=== PATIENT | female | born 1960 | race Caucasian/White ===

== ENCOUNTER → 2016-09-06 | Outpatient (CLI) | payer OTHER ==
[~2016-09-06] MED LIST: ASPI81TA85 PO; BACT800T5 PO; BISO5TAB5 PO; COUM1TAB17 PO; COUM7.5T PO; CRES40TA PO; CYMB60CA3 PO; DIFL150T PO; LISI20TA PO; MAGN30TA2 PO; METF750T PO; NEXI40CA PO; NITR2OI TOP; NITR4TASL SL; NORCOTAB PO; OMEG100011 PO; VICO5TAB16 PO; [UNRECOGNIZED DRUG - OTHER] PO
--- NOTE | 2016-09-06 15:13 | REPMRS ---
Patient History The patient states she had a clinical breast exam in April 2016.Patient is postmenopausal. Family history of unknown cancer in father at age 35, unknown cancer in sister at age 44, breast cancer in sister at age 56, unknown cancer in mother at age 55, unknown cancer in brother at age 51, unknown cancer in paternal uncle at age 50, and unknown cancer in paternal uncle at age 51. Digital Mammo Screening Bilat: September 06, 2016 - Exam #: [id number] Bilateral CC and MLO view(s) were taken. Technologist: Jamaica Vu, Technologist Prior study comparison: August 16, 2015, bilateral digital mammo screening bilat performed at [facility]. August 10, 2014, bilateral bilat screen digital mammo, performed at [facility] ([facility]). FINDINGS: There are scattered fibroglandular densities. There has been no change in the appearance of the mammogram from the prior studies. There is a mild amount of scattered fibroglandular density which is fairly symmetric. There is no interval development of dominant mass, architectural distortion, or clustered microcalcification suggestive of malignancy. ASSESSMENT: BI-RADS/ACR category 1 mammogram. Negative. Recommendation Routine screening mammogram in 1 year (for women over age 40). This mammogram was interpreted with the aid of an FDA-approved computer-aided dectection system. Electronically Signed By: Balta Jaime MD 09/06/16 [id number]
--- NOTE | 2016-09-07 04:18 | REP ---
Clinical: Follow-up ovarian cyst . Technique: Transabdominal pelvic ultrasound followed by transvaginal examination for better evaluation of the endometrium and adnexa with color Doppler evaluation of the ovaries. Findings: Bladder is unremarkable and measures 7.9 x 7.5 x 3.9 cm . Normal retroverted uterus measures 4.9 x 3.4 x 4.1 cm . The endometrial complex measures 3.5 mm thickness. No discrete uterine or endometrial abnormalities are appreciated. Bilateral ovaries are normal in appearance and vascularity without evidence for torsion. Right ovary measures 1.4 x 1.2 x 1.3 cm ; R I = 0.54 . Left ovary measures 1.5 x 0.9 x 1.6 cm ; R I = 0.45 . Small amount of free fluid in the left maame pelvis adjacent to the ovary. No adnexal or ovarian cysts or mass lesion/abnormality noted. Impression: 1. Heterogeneous retroverted postmenopausal uterus without focal abnormality. 2. Normal bilateral ovaries without evidence for cyst. Trace free fluid adjacent to the left ovary is nonspecific and possibly physiologic. Signed by Alex Young MD 09/07/2016 04:09 A
== END | disposition home or self-care (01) ==
LOC: M RAD 13:36
PROVIDERS: ATTEND Physician Assistant
DX: Z12.31 Encounter for screening mammogram for malignant neoplasm of breast (principal); R93.8 Abnormal findings on diagnostic imaging of other specified body structures; Z78.0 Asymptomatic menopausal state; Z80.3 Family history of malignant neoplasm of breast; N85.4 Malposition of uterus
CPT/HCPCS: 76830; 76856; G0202

== ENCOUNTER → 2016-12-31 | Outpatient (CLI) | payer OTHER ==
--- NOTE | 2016-12-31 13:17 | REP ---
Clinical: Given history of COPD. Comparison: 07/13/2016. Findings: There is evidence for partial right lung resection surgical changes at the right hilum and right lung base along with minimal pleuroparenchymal changes in the right lower lung zone. No acute consolidation, obvious nodule or mass lesion is appreciated. No significant COPD or emphysematous changes are identified. Thoracic aorta and heart/pericardium appear stable with atherosclerotic changes again noted and no evidence for aneurysm, cardiomegaly or pericardial effusion. Evaluation for adenopathy is limited by the lack of intravenous contrast enhancement, but few prevascular lymph nodes are identified and stable. Limited upper abdomen demonstrates normal bilateral adrenal glands. Impression: 1. Chronic and postsurgical changes involving the right hemithorax remains stable. 2. No significant COPD or emphysematous changes are appreciated. No acute process identified. Signed by Alex Young MD 12/31/2016 01:08 P
== END ==
LOC: M RAD 12:47
PROVIDERS: ATTEND Internal Medicine Pulmonary Disease
DX: J44.9 Chronic obstructive pulmonary disease, unspecified (principal)

== ENCOUNTER → 2017-01-23 | Outpatient (CLI) | payer OTHER ==
--- NOTE | 2017-01-24 07:38 | REP ---
Clinical: Chronic venous hypertension and lower extremity ulceration. Technique: Severino scale and color Doppler evaluation using linear high frequency transducer. Findings: Ultrasound examination of the right lower extremity deep venous structures from the common femoral vein to the distal femoral vein demonstrates normal compressibility flow and wave patterns in response to respiration and augmentation. Small focus of presumed chronic nonocclusive thrombus in the popliteal vein noted. There is evidence for chronic thrombus throughout the greater saphenous vein and anterior accessory vein. Collateral vessels are identified extending from the greater saphenous and anterior accessory veins extending to the site of ulceration at the mid calf. Severe reflux noted through the lesser saphenous vein. Impression: 1. Chronic nonocclusive thrombus in the popliteal vein. 2. Collateral circulation noted from the greater saphenous and anterior accessory veins to the site of ulceration at the mid calf. 3. Severe reflux noted through the lesser saphenous vein. Signed by Alex Young MD 01/24/2017 07:30 A
== END ==
LOC: M RAD 10:44
PROVIDERS: ATTEND Surgery
DX: I83.891 Varicose veins of right lower extremity with other complications (principal)

== ENCOUNTER 2017-02-16 14:56 | Emergency (ER) | payer OTHER ==
[~2017-02-16] VITALS: Ht 160 cm; Wt 91.2 kg
[2017-02-16] MEDS ORDERED: DRIS50002 PO (15:20)
[2017-02-16] MEDS ORDERED: BREO1INH3 PO (15:20)
[2017-02-16] MEDS ORDERED: COUM1TAB17 PO (15:20)
[2017-02-16] MEDS ORDERED: NITR0.4S14 SL (15:20)
[2017-02-16] MEDS ORDERED: LORazepam 0.5 MG TAB PO STA (18:08)
[2017-02-16] MEDS ORDERED: CLINDAMYCIN 150 MG CAP PO ONE (18:15)
[2017-02-16] MEDS: PERCOCET 5MG/325MG TAB PO ONE ×2 (18:15→18:18)
[2017-02-16] MEDS ORDERED: LORazepam 1 MG TAB As Ordered ONE (18:15)
[2017-02-16] MEDS ORDERED: CLIN150C14 PO (18:53)
[2017-02-16] MEDS ORDERED: NORCO, ANEXSIA 5/325MG TABLET (HYDROcodone/ACETAMINOPHEN) PO ONE (19:18)
[2017-02-16 19:20] VITALS: BP 148/72
[2017-02-27] MEDS ORDERED: GLIP10TA6 PO (15:19)
[2017-03-04] MEDS ORDERED: PRED10TA2 (10:59)
== END 2017-02-16 19:33 | disposition home or self-care (01) ==
LOC: M ED 14:56
DX: I80.3 Phlebitis and thrombophlebitis of lower extremities, unspecified (principal); I87.2 Venous insufficiency (chronic) (peripheral); I25.2 Old myocardial infarction; F17.200 Nicotine dependence, unspecified, uncomplicated; Z85.118 Personal history of other malignant neoplasm of bronchus and lung; Z90.2 Acquired absence of lung [part of]; Z95.5 Presence of coronary angioplasty implant and graft; Z79.01 Long term (current) use of anticoagulants

== ENCOUNTER → 2017-03-04 | Day surgery (SDC) | payer OTHER ==
[~2017-03-04] VITALS: Ht 162.6 cm; Wt 90.7 kg
[~2017-03-04] MED LIST changes: +BREO1INH3 PO; +CLIN150C14 PO; +D5W/0.45% SODIUM CHLORIDE 1,000 ML IV SCH; +DRIS50002 PO; +GLIP10TA6 PO; +LIDOCAINE 1% SDV 5 ML VIAL SQ ONE; +LIDOCAINE 1% SDV INJ 30 ML VIAL As Ordered ONE; +LIDOCAINE W/EPINEPHRINE 1% 20ML VIAL As Ordered ONE; +LR 1,000 ML IV ONE; +MIDAZOLAM INJ 5 MG/ML VIAL (J2250) As Ordered ONE; +NITR0.4S14 SL; +PRED10TA2; +fentaNYL 100 MCG/2 ML INJECTION (J3010) As Ordered ONE
[2017-03-04 10:22] LABS: INR 1.56
[2017-03-04 14:30] VITALS: BP 144/70
--- NOTE | 2017-03-19 19:36 | ROOPDOC ---
[facility] Report Of Operation Report of Operation DATE OF PROCEDURE: 03/04/17 PREOPERATIVE DIAGNOSES: Right lower extremity nonhealing venous stasis ulcer. Right lesser saphenous vein valvular insufficiency. POSTOPERATIVE DIAGNOSES: Right lower extremity nonhealing venous stasis ulcer. Right lesser saphenous vein valvular insufficiency.. PROCEDURE: Right lesser saphenous vein radiofrequency ablation. SURGEON: Dr. My Mcelroy MD CUPOLA MAN: None INDICATION: Patient is a 56-year-old female with nonhealing right medial calf venous stasis ulcer who has previously undergone a right greater saphenous vein radiofrequency ablation. Patient was evaluated and found to have right lesser saphenous vein and valvular insufficiency and continues to have nonhealing of the right lower extremity venous stasis wound. Patient was evaluated in recommendation was to undergo right lesser saphenous vein radiofrequency ablation for improved chance at healing the right lower extremity venous stasis ulcer. Risks benefits and alternative treatment options were discussed with the patient. Benefits included but were not limited to relief of symptoms from venous insufficiency and healing of venous stasis ulcer. Alternative treatment options included but were not limited to no intervention with continued conservative management. Risks included but were not limited to infection, bleeding, renal failure requiring hemodialysis, possible need for further surgical intervention, scarring of the skin, burning of the skin, cerebrovascular accident, myocardial infarction, pulmonary embolus, DVT, loss of limb, loss of life and poor outcome. All the patient's questions were answered. Patient accepts these risks and agrees to proceed with right lesser saphenous vein ablation. ANESTHESIA: Local monitored anesthesia care. ESTIMATED BLOOD LOSS: Approximately 5 mL. IV FLUIDS: 700 HEPARIN: None PROTAMINE: None COMPLICATIONS: None. DRAINS: None SPECIMENS: None IMPLANTS: None PROCEDURE: Patient was taken to the operating room placed supine on the operating room table and the right lower extremity was prepped and draped in a standard surgical fashion. A timeout was completed by myself and all the staff in the operating room confirming the correct patient, procedure and laterality. The right lesser saphenous vein was then cannulated with a micro-puncture needle to anesthetize the overlying skin with 1% lidocaine mixed with half percent Marcaine using ultrasound guidance. The ultrasound showed the right lesser saphenous vein to be widely patent and easily compressible and free of thrombus. The ultrasound guided cannulation was performed using concurrent real- time ultrasound visualization of the needle entry into the right lesser saphenous vein with permanent recording of the image performed. The micropuncture wires advanced to the micropuncture needle which was then upsized to a micropuncture sheath. A J-wire was advanced to the micropuncture sheath which was then upsized to a 7 Martiniquais sheath. The radiofrequency ablation catheter was advanced through the 7 Martiniquais sheath into the right lesser saphenous vein and placed 2 cm distal to the right lesser saphenous vein and right popliteal vein junction. The right lesser saphenous vein was then anesthetized and insulated with circumferential injection of tumescent solution around the right lesser saphenous vein. The right lesser saphenous vein was then ablated using the radiofrequency ablation catheter from 2 cm distal to the right lesser saphenous vein and right popliteal vein junction to the entry site into the right lesser saphenous vein at the ankle. The catheter and sheath were then removed. The right lower extremity was then wrapped with an Junior wrap from the base of the toes to the thigh region after dressings were applied. All instrument, sponge and needle counts were correct at the end of the case. There were no complications. Dr. Mcelroy was present for and directed the entire case. The patient was transferred to the recovery room awake, alert, extubated and in stable condition. Rowdy Mcelroy MD Mar 19, 2017 19:36
== END | disposition home or self-care (01) ==
LOC: M SDC 09:52
PROVIDERS: ATTEND Surgery Vascular Surgery
DX: I83.218 Varicose veins of right lower extremity with both ulcer of other part of lower extremity and inflammation (principal); L97.819 Non-pressure chronic ulcer of other part of right lower leg with unspecified severity; I82.5Z1 Chronic embolism and thrombosis of unspecified deep veins of right distal lower extremity; I25.2 Old myocardial infarction; Z95.5 Presence of coronary angioplasty implant and graft; K21.9 Gastro-esophageal reflux disease without esophagitis; M19.90 Unspecified osteoarthritis, unspecified site; M54.9 Dorsalgia, unspecified; J44.9 Chronic obstructive pulmonary disease, unspecified; F41.9 Anxiety disorder, unspecified; G47.00 Insomnia, unspecified; F32.89 Other specified depressive episodes; E11.9 Type 2 diabetes mellitus without complications; I10 Essential (primary) hypertension; E78.00 Pure hypercholesterolemia, unspecified; Z85.118 Personal history of other malignant neoplasm of bronchus and lung; F17.210 Nicotine dependence, cigarettes, uncomplicated; Z79.899 Other long term (current) drug therapy; Z79.52 Long term (current) use of systemic steroids; Z79.82 Long term (current) use of aspirin; Z79.01 Long term (current) use of anticoagulants; Z88.1 Allergy status to other antibiotic agents
CPT/HCPCS: 36415; 36475; 85610; J2250; J3010

== ENCOUNTER → 2017-03-13 | Outpatient (CLI) | payer OTHER ==
[~2017-03-13] MED LIST changes: -D5W/0.45% SODIUM CHLORIDE 1,000 ML IV SCH; -LIDOCAINE 1% SDV 5 ML VIAL SQ ONE; -LIDOCAINE 1% SDV INJ 30 ML VIAL As Ordered ONE; -LIDOCAINE W/EPINEPHRINE 1% 20ML VIAL As Ordered ONE; -LR 1,000 ML IV ONE; -MIDAZOLAM INJ 5 MG/ML VIAL (J2250) As Ordered ONE; -fentaNYL 100 MCG/2 ML INJECTION (J3010) As Ordered ONE
--- NOTE | 2017-03-13 12:24 | REP ---
REASON: History of venous insufficiency. Status post surgical procedure. Multiple ultrasonographic images of the deep venous structures of the right thigh were obtained from the level of the common femoral vein to the popliteal vein along with Doppler interrogative techniques, compressive techniques, and color flow imaging. There is abnormal echogenic material seen in the popliteal vein which extends to the trifurcation. Augmentation is decreased. Color flow signal is decreased. IMPRESSION: Acute deep vein thrombosis as described above. Signed by Jayy Mireles DO 03/13/2017 04:57 P
== END ==
LOC: M RAD 10:57
PROVIDERS: ATTEND Surgery Vascular Surgery
DX: I82.431 Acute embolism and thrombosis of right popliteal vein (principal); I87.2 Venous insufficiency (chronic) (peripheral)

== ENCOUNTER → 2017-05-03 | Outpatient (REF) | payer OTHER | LOC: M LAB REF 12:43 | PROVIDERS: ATTEND Nurse Practitioner Family | DX: N39.0 Urinary tract infection, site not specified (principal) ==

== ENCOUNTER → 2017-09-30 | Outpatient (CLI) | payer OTHER | LOC: M RAD 10:09 | DX: Z12.31 Encounter for screening mammogram for malignant neoplasm of breast (principal); Z80.3 Family history of malignant neoplasm of breast; Z80.9 Family history of malignant neoplasm, unspecified | CPT/HCPCS: 77067 ==

== ENCOUNTER → 2017-10-29 | Outpatient (REF) | payer OTHER ==
[2017-10-29 19:04] LABS: C REACTIVE PROTEIN QUANTITATIV 1.49 MG/DL (0.00-0.30)
== END ==
LOC: M LAB REF 17:40
DX: M25.50 Pain in unspecified joint (principal)
CPT/HCPCS: 86140

== ENCOUNTER → 2017-12-16 | Outpatient (CLI) | payer OTHER ==
[~2017-12-16] MED LIST changes: -ASPI81TA85 PO; -BACT800T5 PO; -BISO5TAB5 PO; -BREO1INH3 PO; -CLIN150C14 PO; -COUM1TAB17 PO; -COUM7.5T PO; -CRES40TA PO; -CYMB60CA3 PO; -DIFL150T PO; -DRIS50002 PO; -GLIP10TA6 PO; +ISOVUE-370 76% 100ML VIAL (Q9967) As Ordered; -LISI20TA PO; -MAGN30TA2 PO; -METF750T PO; -NEXI40CA PO; -NITR0.4S14 SL; -NITR2OI TOP; -NITR4TASL SL; -NORCOTAB PO; -OMEG100011 PO; -PRED10TA2; -VICO5TAB16 PO; -[UNRECOGNIZED DRUG - OTHER] PO
== END ==
LOC: M RAD 09:46
DX: C34.90 Malignant neoplasm of unspecified part of unspecified bronchus or lung (principal); E87.1 Hypo-osmolality and hyponatremia
CPT/HCPCS: Q9967

== ENCOUNTER → 2017-12-16 | Outpatient (CLI) | payer OTHER ==
[2017-12-16 10:28] LABS: ANION GAP 5 MEQ/L (8-16); BLOOD UREA NITROGEN 10 MG/DL (7-18); CALCIUM LEVEL 8.3 MG/DL (8.5-10.1); CARBON DIOXIDE LEVEL 27 MEQ/L (21-32); CHLORIDE LEVEL 105 MEQ/L (98-107); CREATININE FOR GFR 0.69 MG/DL (0.55-1.30); GLOMERULAR FILTRATION RATE > 60.0 (>51); GLUCOSE, FASTING 136 MG/DL (70-100); POTASSIUM SERUM 4.4 MEQ/L (3.5-5.1); SODIUM LEVEL 137 MEQ/L (136-145)
== END ==
LOC: M LAB 09:38
DX: E87.1 Hypo-osmolality and hyponatremia (principal)

== ENCOUNTER → 2018-04-30 | Outpatient (CLI) | payer OTHER | LOC: M RAD 10:39 | DX: I83.218 Varicose veins of right lower extremity with both ulcer of other part of lower extremity and inflammation (principal); I74.9 Embolism and thrombosis of unspecified artery; F17.218 Nicotine dependence, cigarettes, with other nicotine-induced disorders | CPT/HCPCS: 93971 ==

== ENCOUNTER → 2018-08-01 | Outpatient (CLI) | payer OTHER ==
[~2018-08-01] MED LIST changes: +ASPI81TA85 PO; +BACT800T5 PO; +BISO5TAB5 PO; +BREO1INH3 PO; +CLIN150C14 PO; +COUM1TAB17 PO; +COUM7.5T PO; +CRES40TA PO; +CYMB60CA3 PO; +DIFL150T PO; +DRIS50003 PO; +GLIP10TA6 PO; -ISOVUE-370 76% 100ML VIAL (Q9967) As Ordered; +LISI20TA PO; +MAGN30TA2 PO; +METF750T PO; +NEXI40CA PO; +NITR0.4S14 SL; +NITR2OI TOP; +NITR4TASL SL; +NORCOTAB PO; +OMEG100011 PO; +PRED10TA2; +VICO5TAB16 PO; +[UNRECOGNIZED DRUG - OTHER] PO
--- NOTE | 2018-08-01 14:27 | REP ---
RIGHT KNEE, FIVE VIEWS: HISTORY: Swelling. There is no acute fracture or dislocation. There is mild narrowing of the medial knee joint space. The lateral knee joint space and patellofemoral joint space are normal in appearance. Osteophytes are present on the femur, tibia, and patella. IMPRESSION: Degenerative change as described above. Electronically Signed by Ming Lara MD 08/01/2018 02:29 P
--- NOTE | 2018-08-01 15:23 | REP ---
RIGHT LOWER EXTREMITY DUPLEX VENOUS ULTRASOUND: HISTORY: Question DVT. Patient on Coumadin. FINDINGS: There is echogenic material along the wall of the proximal femoral vein and common femoral vein segment on the right with lack of complete compressibility consistent with nonocclusive chronic DVT. This appears a little less extensive than on the prior study. No evidence of acute DVT is seen. IMPRESSION: Findings consistent with chronic nonocclusive DVT in the right common femoral and proximal femoral vein. No definite acute DVT. Electronically Signed by Eb Jaime MD 08/01/2018 05:01 P
== END ==
LOC: M RAD 13:48
PROVIDERS: ATTEND Nurse Practitioner Family
DX: M17.11 Unilateral primary osteoarthritis, right knee (principal); M25.761 Osteophyte, right knee; M25.461 Effusion, right knee; M25.561 Pain in right knee; M79.89 Other specified soft tissue disorders

== ENCOUNTER → 2018-10-08 | Outpatient (CLI) | payer MEDICARE ==
[~2018-10-08] MED LIST changes: +FURO20TA2 PO; +GABA-1171 PO; +ISOVUE-370 76% 100ML VIAL (Q9967) As Ordered ONE; +MAGN64TASA PO; +PANT40TA3 PO; +POTA10CA32 PO
--- NOTE | 2018-10-08 10:28 | REPMRS ---
Patient History The patient states she had a clinical breast exam in September 2018. Family history of unknown cancer at age 55 in mother, unknown cancer at age 50 in paternal uncle, unknown cancer at age 51 in paternal uncle, breast cancer at age 56 in sister, unknown cancer at age 51 in brother, unknown cancer at age 44 in sister, unknown cancer at age 35 in father. Digital Mammo Screening Bilat: October 08, 2018 - Exam #: [id number] Bilateral CC and MLO view(s) were taken. Technologist: Jamaica Vu, Technologist Prior study comparison: September 30, 2017, bilateral digital mammo screening bilat performed at [facility]. September 06, 2016, bilateral digital mammo screening bilat performed at [facility]. August 16, 2015, bilateral digital mammo screening bilat performed at [facility]. FINDINGS: There are scattered fibroglandular densities. There has been no change in the appearance of the mammogram from the prior studies. There is a mild amount of scattered fibroglandular density which is fairly symmetric. There is no interval development of dominant mass, architectural distortion, or clustered microcalcification suggestive of malignancy. 3-D tomosynthesis shows no additional findings. Assessment: BI-RADS/ACR category 1 mammogram. Negative Mammogram. Recommendation Routine screening mammogram of both breasts in 1 year (for women over age 40). This patient's Lifetime Breast Cancer RIsk is estimated at 13.4 %. This mammogram was interpreted with the aid of an FDA-approved computer-aided dectection system. Electronically Signed By: Balta Jaime MD 10/08/18 [id number]
--- NOTE | 2018-10-08 11:06 | REP ---
Clinical: History of poorly differentiated large cell carcinoma. Technique: Axial contrast enhanced images from the thoracic inlet to the upper abdomen with coronal and sagittal re-formations using 100 ml Isovue 370 intravenous contrast material. Comparison: 12/16/2017. Findings: The bilateral lung maldonado demonstrate chronic interstitial changes and evidence for emphysematous disease along with minimal scattered scarring. Postsurgical changes involving the right hemithorax noted. Mediastinal and hilar adenopathy is again appreciated and appears relatively stable. No acute consolidation, nodule or mass lesion identified. No effusion. No pneumothorax. Tracheobronchial tree is patent. Further evaluation of the mediastinum demonstrates atherosclerotic changes to the thoracic aorta and coronary arteries without aortic aneurysm or dissection. No cardiomegaly or pericardial effusion. Surrounding musculoskeletal structures without focal osseous abnormality. Limited upper abdomen demonstrates fatty infiltration to the liver and normal bilateral adrenal glands. Impression: 1. Stable chronic interstitial changes and right-sided postsurgical changes along with stable mediastinal and hilar adenopathy. 2. No evidence for acute process and no evidence for acute recurrence or metastatic disease. Electronically Signed by Alex Young MD 10/08/2018 10:58 A
== END ==
LOC: M RAD 09:42
PROVIDERS: ATTEND Nurse Practitioner Family
DX: Z12.31 Encounter for screening mammogram for malignant neoplasm of breast (principal)
CPT/HCPCS: 71260; 77063; 77067; Q9967

== ENCOUNTER → 2019-01-12 | Outpatient (CLI) | payer MEDICARE ==
[~2019-01-12] MED LIST changes: +HYDR-3715 PO; -ISOVUE-370 76% 100ML VIAL (Q9967) As Ordered ONE; -NORCOTAB PO; -VICO5TAB16 PO; +VICO5TAB17 PO
--- NOTE | 2019-01-13 06:42 | REP ---
Clinical: Chronic venous hypertension with lower extremity ulcer. Technique: Real time golden scale and color Doppler evaluation using linear high frequency transducer. Findings: Left lower extremity demonstrates no evidence for deep venous thrombosis and incidental duplicated mid femoral vein. Minimal amount of reflux noted through the greater saphenous vein measuring 9 mm diameter proximally with 5.4-second reflux duration as well as reflux through the anterior accessory greater saphenous vein. Reflux also identified through the deep system including common femoral vein, superficial femoral vein and popliteal vein. Right lower extremity demonstrates chronic nonocclusive thrombus extending from the common femoral vein to the popliteal vein (history of prior acute deep venous thrombosis). The patient is noted to be status post EVLT the right lower extremity reflux through the deep system from the common femoral vein to the popliteal vein is noted. Impression: 1. Chronic nonocclusive thrombus in the right lower extremity from the common femoral vein to the popliteal vein. Status post right EVLT with evidence for reflux through the deep system. 2. Left lower extremity without DVT but demonstrating minimal reflux through the greater saphenous vein and anterior accessory vein as well as the deep system. Electronically Signed by Alex Young MD 01/13/2019 06:33 A
== END ==
LOC: M RAD 10:38
PROVIDERS: ATTEND Physician Assistant
DX: I87.311 Chronic venous hypertension (idiopathic) with ulcer of right lower extremity (principal); I82.511 Chronic embolism and thrombosis of right femoral vein; I82.531 Chronic embolism and thrombosis of right popliteal vein

== ENCOUNTER 2019-02-19 10:40 | Day surgery (SDC) | payer MEDICARE ==
[~2019-02-19] VITALS: Ht 162.6 cm; Wt 86.4 kg
[~2019-02-19 10:40] MED LIST changes: +BALANCED SALT IRRIGATION SOLUTION 500ML BAG (FOR OR EYE MACHINE) As Ordered ONE; +CEFUROXIME 1MG/0.1ML INTRACAMERAL INJ As Ordered ONE; +DUOVISC (0.50ML VISCOAT/0.55ML PROVISC) OPHTH KIT As Ordered ONE; +LIDOCAINE 0.75%/EPINEPHRINE 0.025% IN BSS 1ML SYR INTRACAMERAL (OR ONLY) As Ordered ONE; +MIDAZOLAM INJ 2 MG/2 ML VIAL (J2250) As Ordered ONE; +OFLOXACIN 0.3 % (OCUFLOX) OPTH SOL 5ML OD ONE; +PHENYLEPHRINE 2.5% OPHTH SOL 2ML OD ONE; +POVIDONE-IODINE 5% OPHTH PREP SOL 30ML As Ordered ONE; +PROPARACAINE 0.5% OPHTH SOL 15ML OD ONE; +TROPICAMIDE 1% OPHTH SOLN 2ML OD ONE; +fentaNYL 100 MCG/2 ML INJECTION (J3010) As Ordered ONE
[2019-02-19 13:25] VITALS: BP 132/66
--- NOTE | 2019-02-20 20:31 | RO ---
DATE OF PROCEDURE: 02/19/2019 PREOPERATIVE DIAGNOSIS: 1. Visually significant nuclear sclerotic cataract right eye. POSTOPERATIVE DIAGNOSIS: 1. Visually significant nuclear sclerotic cataract right eye. PROCEDURE: 1. Cataract extraction with use of phacoemulsification and placement of intraocular lens, AU00T0, 21.5 D, right eye. SURGEON: Kenn Farias DO POT OPERATOR: None. ANESTHESIA: Local with monitored anesthesia care (MAC). COMPLICATIONS: None. POSTOPERATIVE CONDITION: Stable. INDICATIONS FOR SURGERY: 1. Blurred vision affecting patients activities of daily living. DESCRIPTION OF PROCEDURE: The patient was seen in the preoperative area and properly identified. The correct operative eye was identified and marked. The patient received topical anesthetic, antibiotics, and topical dilating drops. The patient was then transferred to the operating room. The correct side was re-identified, and a time-out was performed. The eye was prepped and draped in a sterile fashion. The eyelids were isolated with Tegaderm tape, and the lids were held open with an adjustable speculum. A 1.0 mm paracentesis incision was made. Intraocular preservative-free Shugarcaine was then injected into the anterior chamber. Viscoelastic was then injected into the anterior chamber through the paracentesis. Using a 2.4 mm sharp-tipped keratome, the anterior chamber was entered via a temporal clear cornea incision. A continuous curvilinear capsulorrhexis was created with Utrata forceps. Hydrodissection was performed with balanced salt solution (BSS) on a blunt cannula until the nucleus was able to rotate freely. The crystalline lens was phacoemulsified and aspirated. Irrigation/aspiration was used to remove the cortical material. Cohesive viscoelastic was placed into the capsular bag to deepen it. The implant was placed into the capsular bag and allowed to unfold. Placement was confirmed by visualizing the anterior capsulorrhexis. Irrigation/aspiration was used to remove the viscoelastic. The clear corneal incision was hydrated with BSS on a blunt cannula. The lens was well positioned. The incisions were then tested for leaks and found to be negative. The eye was then palpated for appropriate pressure and adjusted accordingly with BSS. The eyelid speculum was then carefully removed. A shield was placed over the eye. The patient tolerated the procedure well and was discharged to the recovery unit in a stable condition.
== END 2019-02-19 13:30 | disposition home or self-care (01) ==
LOC: M SDC 10:40
PROVIDERS: ATTEND Ophthalmology
DX: H25.11 Age-related nuclear cataract, right eye (principal); I10 Essential (primary) hypertension; E11.9 Type 2 diabetes mellitus without complications; J44.9 Chronic obstructive pulmonary disease, unspecified; E78.5 Hyperlipidemia, unspecified; K21.9 Gastro-esophageal reflux disease without esophagitis; Z79.82 Long term (current) use of aspirin; Z85.118 Personal history of other malignant neoplasm of bronchus and lung; Z92.21 Personal history of antineoplastic chemotherapy; F17.210 Nicotine dependence, cigarettes, uncomplicated; Z88.1 Allergy status to other antibiotic agents; Z88.5 Allergy status to narcotic agent; Z79.84 Long term (current) use of oral hypoglycemic drugs; Z79.01 Long term (current) use of anticoagulants
CPT/HCPCS: 66984; J2250; J3010; V2632

== ENCOUNTER → 2019-09-16 | Outpatient (CLI) | payer MEDICARE ==
[~2019-09-16] MED LIST changes: -BALANCED SALT IRRIGATION SOLUTION 500ML BAG (FOR OR EYE MACHINE) As Ordered ONE; +BISO5TAB14 PO; -BISO5TAB5 PO; -CEFUROXIME 1MG/0.1ML INTRACAMERAL INJ As Ordered ONE; -DUOVISC (0.50ML VISCOAT/0.55ML PROVISC) OPHTH KIT As Ordered ONE; -LIDOCAINE 0.75%/EPINEPHRINE 0.025% IN BSS 1ML SYR INTRACAMERAL (OR ONLY) As Ordered ONE; -LISI20TA PO; +LISI20TA19 PO; -METF750T PO; +METF750T36 PO; -MIDAZOLAM INJ 2 MG/2 ML VIAL (J2250) As Ordered ONE; -OFLOXACIN 0.3 % (OCUFLOX) OPTH SOL 5ML OD ONE; +OSTE1TAB2 PO; -PHENYLEPHRINE 2.5% OPHTH SOL 2ML OD ONE; -POVIDONE-IODINE 5% OPHTH PREP SOL 30ML As Ordered ONE; -PROPARACAINE 0.5% OPHTH SOL 15ML OD ONE; -TROPICAMIDE 1% OPHTH SOLN 2ML OD ONE; -fentaNYL 100 MCG/2 ML INJECTION (J3010) As Ordered ONE
--- NOTE | 2019-09-17 16:35 | REP ---
Clinical: History of large cell carcinoma to the right upper lobe/right middle lobe. Technique: Axial noncontrast images from the thoracic inlet to the upper abdomen eighth coronal and sagittal re-formations. Comparison: 10/08/2018. Findings: Lung maldonado demonstrate stable fibrosis/scarring, bronchiectasis, and subtle patchy primarily lower lobe ground-glass opacities. No new acute pulmonary parenchymal consolidation, nodule or mass lesion. No effusion. No pneumothorax. Postsurgical changes primarily noted in the right hilum remain essentially stable. Suspected mediastinal and hilar soft tissue/adenopathy appears relatively similar to prior examination although examination is limited by lack of intravenous contrast enhancement. Further evaluation of the mediastinum demonstrates atherosclerotic changes to the thoracic aorta and coronary arteries without aortic aneurysm or cardiomegaly. No pericardial effusion. Surrounding musculoskeletal structures without focal abnormality. Impression: 1. Chronic stable changes as described above. 2. Suspected mediastinal and hilar adenopathy similar to prior examination although evaluation is limited by the lack of intravenous contrast enhancement. 3. No obvious acute process and no obvious evidence for recurrence or metastatic disease. Electronically Signed by Alex Young MD 09/17/2019 04:27 P
== END ==
LOC: M RAD 13:06
PROVIDERS: ATTEND Internal Medicine Pulmonary Disease
DX: Z85.118 Personal history of other malignant neoplasm of bronchus and lung (principal)

== ENCOUNTER → 2019-10-27 | Outpatient (CLI) | payer MEDICARE ==
--- NOTE | 2019-10-27 11:01 | REPMRS ---
Patient History The patient states she had a clinical breast exam in November 2018. Family history of unknown cancer at age 55 in mother, unknown cancer at age 50 in paternal uncle, unknown cancer at age 51 in paternal uncle, breast cancer at age 56 in sister, unknown cancer at age 51 in brother, unknown cancer at age 44 in sister, unknown cancer at age 35 in father. 3D TOMOSYNTHESIS WAS PERFORMED. [facility] lifetime risk for breast cancer is 13.1%. Digital Woman Screen Mammo: October 27, 2019 - Exam #: [id number] Bilateral CC and MLO view(s) were taken. Technologist: Ruthann Martini, Prior study comparison: October 08, 2018, bilateral digital mammo screening bilat, performed at [facility]. September 30, 2017, bilateral digital mammo screening bilat, performed at [facility]. FINDINGS: There are scattered fibroglandular densities. There has been no change in the appearance of the mammogram from the prior studies. There is a mild amount of residual fibroglandular tissue which is fairly symmetric. There is no interval development of dominant mass, architectural distortion, or clustered microcalcification suggestive of malignancy. Assessment: BI-RADS/ACR category 1 mammogram. Negative Mammogram. Recommendation Routine screening mammogram in 1 year (for women over age 40). This mammogram was interpreted with the aid of an FDA-approved computer-aided dectection system. Electronically Signed By: Miguel Ángel Severino MD 10/27/19 1100
== END ==
LOC: M WHC 09:29
PROVIDERS: ATTEND Nurse Practitioner Family
DX: Z12.31 Encounter for screening mammogram for malignant neoplasm of breast (principal)

== ENCOUNTER → 2019-11-24 | Outpatient (REF) | payer MEDICARE | LOC: M LAB REF 17:19 | PROVIDERS: ATTEND Internal Medicine | DX: M25.50 Pain in unspecified joint (principal) ==

== ENCOUNTER → 2020-01-29 | Outpatient (CLI) | payer MEDICARE ==
[~2020-01-29] MED LIST changes: -COUM7.5T PO; +COUM7.5T6 PO
[2020-01-29 13:04] LABS: BLOOD UREA NITROGEN 11 MG/DL (7-18); CARBON DIOXIDE LEVEL 25 MEQ/L (21-32); CHLORIDE LEVEL 102 MEQ/L (98-107); CREATININE FOR GFR 0.76 MG/DL (0.55-1.30); GLOMERULAR FILTRATION RATE > 60.0 (>51); GLUCOSE, FASTING 217 MG/DL (70-100); POTASSIUM SERUM 4.5 MEQ/L (3.5-5.1); SODIUM LEVEL 134 MEQ/L (136-145)
== END ==
LOC: M LAB 11:52
PROVIDERS: ATTEND Internal Medicine
DX: I10 Essential (primary) hypertension (principal)

== ENCOUNTER → 2020-02-10 | Outpatient (CLI) | payer MEDICARE ==
[2020-02-10 14:21] LABS: BASO % 0.4 % (0.0-1.0); EOS # 0.1 10^3/uL (0.0-0.5); EOS % 1.3 % (0.0-3.0); HEMATOCRIT 42.4 % (36.0-47.0); LYMPH # 2.4 10^3/uL (1.5-5.0); LYMPH % 30.8 % (24.0-44.0); MEAN CORPUSCULAR HEMOGLOBIN 27.3 pg (27.0-33.0); MEAN CORPUSCULAR VOLUME 82.7 fl (80.0-96.0); MONO # 0.6 10^3/uL (0.0-0.8); MONO % 7.5 % (0.0-5.0); NEUTROPHILS # 4.7 10^3/uL (1.5-8.5); NEUTROPHILS % 59.9 % (36.0-66.0); PLATELET COUNT, AUTOMATED 377 10^3/uL (150-450); RED BLOOD COUNT 5.13 10^6/uL (4.00-5.40); WHITE BLOOD COUNT 7.8 10^3/uL (4.0-10.0)
[2020-02-10 14:48] LABS: BLOOD UREA NITROGEN 7 MG/DL (7-18); CALCIUM LEVEL 9.3 MG/DL (8.5-10.1); CARBON DIOXIDE LEVEL 25 MEQ/L (21-32); CHLORIDE LEVEL 98 MEQ/L (98-107); CREATININE FOR GFR 0.74 MG/DL (0.55-1.30); GLOMERULAR FILTRATION RATE > 60.0 (>51); GLUCOSE, FASTING 172 MG/DL (70-100); POTASSIUM SERUM 3.8 MEQ/L (3.5-5.1); SODIUM LEVEL 132 MEQ/L (136-145)
== END ==
LOC: M LAB 13:20
PROVIDERS: ATTEND Physician Assistant
DX: I25.118 Atherosclerotic heart disease of native coronary artery with other forms of angina pectoris (principal)

== ENCOUNTER → 2020-05-06 | Outpatient (CLI) | payer MEDICARE ==
[~2020-05-06] MED LIST changes: -ASPI81TA85 PO; +ASPI81TA86 PO; +BISO10TA14 PO; +HYDR-4429 PO; +ISOS30TA4 PO; +ISOVUE-370 76% 100ML VIAL As Ordered ONE; +JARD1TAB PO; +JARD1TAB3 PO; -LISI20TA19 PO; +LISI20TA35 PO; +PANT40TA29 PO; -PANT40TA3 PO; +PLAV1TAB2 PO; +WARF-23 PO
--- NOTE | 2020-05-12 08:27 | REP ---
CT CHEST WITH INTRAVENOUS (IV) CONTRAST HISTORY: Shortness of breath. COMPARISON: Chest CT study 09/16/2019 and 10/08/2018. CT CONTRAST DOSE: 100 mL of intravenous Isovue-[address] FINDINGS: The patient is status post prior right upper lobectomy for carcinoma of the right lung. There are right mediastinal clips and right suprahilar clips. There is elevation of the right hemidiaphragm with slight pleural parenchymal fibrosis in the right base. These findings are uncomfortable. No pleural effusion is seen. There is a granulomatous calcification in the right lower lobe unchanged. No new pulmonary nodule is appreciated. No infiltrate is seen. Vascular calcification is noted along the coronary artery distribution. There is advanced diffuse fatty infiltration of the liver. Normal adrenal glands are seen bilaterally. Stable subcarinal and hilar lymph nodes are observed. No progressive tc enlargement is seen. No bony destructive lesion is seen. IMPRESSION: Postthoracotomy right upper lobectomy for malignancy. Vascular calcification. Stable hilar and mediastinal lymph nodes. No acute disease. Diffuse fatty infiltration of the liver. MTDD
== END ==
LOC: M RAD 13:02
PROVIDERS: ATTEND Internal Medicine
DX: R06.02 Shortness of breath (principal)
CPT/HCPCS: 71260; Q9967

== ENCOUNTER → 2020-06-06 | Outpatient (CLI) | payer MEDICARE ==
[~2020-06-06] MED LIST changes: -ISOVUE-370 76% 100ML VIAL As Ordered ONE
--- NOTE | 2020-06-06 11:42 | REP ---
INDICATION: LUNG CA W/ BONE PAIN, INCREASING ALK PHOS, US FIRST. COMPARISON: Comparison imaging includes the CT abdomen pelvis January 31, 2017, PET-CT January 26, 2016, and MRI lumbar spine September 20, 2015.. TECHNIQUE/RADIOTRACER AND DOSE: 21.5 mCi of technetium 99m MDP was injected and standard whole-body bone scanning is acquired. FINDINGS: There is normal distribution of skeletal tracer with uptake in bilateral kidneys and urinary bladder. There is a mottled pattern of increased uptake in the upper sacrum on posterior images. This appears to be more prominent in the right mid and upper sacrum than the left. Comparison CT imaging raises question of Paget's disease involving the sacrum. Metastasis cannot be excluded. There is no comparison bone scan. There is mild arthritic uptake in each mid foot. No other evidence to suggest skeletal metastatic disease. IMPRESSION: Mottled pattern of increased uptake in the sacrum. Paget's disease versus metastasis. Repeat CT study of the pelvis recommended. No other evidence of skeletal metastatic disease.. <Electronically signed by Balta Jaime > 06/06/20 [id number]
--- NOTE | 2020-06-08 07:44 | REP ---
INDICATION: LUNG CA W/ BONE PAIN, INCREASING ALK PHOS, NUC MED ALSO COMPARISON: None. TECHNIQUE: Real time golden scale ultrasound examination using curved array transducer. FINDINGS: The liver demonstrates generalized fatty infiltration with focal fatty sparing adjacent to the gallbladder fossa. No focal hepatic lesions are otherwise noted. The gallbladder is unremarkable and without gallstones, wall thickening, or pericholecystic fluid. No biliary ductal dilatation is appreciated and the common bile duct measures 3.9 mm diameter. The pancreas is incompletely evaluated but visualized portions appear normal. The right kidney is normal in appearance and without hydronephrosis measuring 12.4 x 5.4 x 4.6 cm. No ascites. IMPRESSION: Hepatosteatosis. <Electronically signed by Alex Young > 06/08/20 [id number]
== END ==
LOC: M RAD 07:47
PROVIDERS: ATTEND Internal Medicine Medical Oncology
DX: K76.0 Fatty (change of) liver, not elsewhere classified (principal); C34.90 Malignant neoplasm of unspecified part of unspecified bronchus or lung; M25.50 Pain in unspecified joint
CPT/HCPCS: 76705; 78306; A9503

== ENCOUNTER → 2020-06-15 | Outpatient (CLI) | payer MEDICARE ==
[~2020-06-15] MED LIST changes: +ISOVUE-370 76% 100ML VIAL As Ordered ONE
--- NOTE | 2020-06-15 18:12 | REPVR ---
PROCEDURE INFORMATION: Exam: CT Pelvis With Contrast; Skeletal Exam date and time: 06/15/2020 5:29 PM Age: 59 years old Clinical indication: Pain; Other: Sacral; Additional info: HX of lung CA with sacral pain/lesion TECHNIQUE: Imaging protocol: Computed tomography images of the pelvis with intravenous contrast. Exam focused on the skeletal structures. Radiation optimization: All CT scans at this facility use at least one of these dose optimization techniques: automated exposure control; mA and/or kV adjustment per patient size (includes targeted exams where dose is matched to clinical indication); or iterative reconstruction. Contrast material: ISOVUE 370; Contrast volume: 100 ml; Contrast route: INTRAVENOUS (IV); COMPARISON: CT ABD PELVIS W/O FOL BY WIT 01/31/2017 11:15 AM FINDINGS: Stomach and bowel: Sigmoid colonic diverticulosis. No diverticulitis. Vasculature: Infrarenal fusiform abdominal aortic aneurysm. The abdominal aorta is not seen in its entirety. The aneurysmal segment measures 3.7 cm in maximum diameter and extends for at least 2.4 cm down 2 but not involving the aortic bifurcation. Bones/joints: Heterogeneous appearance of the sacrum with relatively symmetric areas of demineralization. Degenerative changes noted along the iliac margins of the sacroiliac joints bilaterally. Narrowing of the lumbosacral junction with marginal osteophytes present. Bilateral foraminal stenosis. Soft tissues: Unremarkable. IMPRESSION: 1. Diffusely abnormal appearance of the sacrum which is unchanged from previous examinations dated back to 01/31/2017. No new lytic lesions. No new extraosseous soft tissue masses. 2. Sigmoid diverticulosis. 3. Fusiform infrarenal abdominal aortic aneurysm with maximum diameter 3.7 cm (previous 3.5 cm). The aneurysm is not imaged in its entirety. Electronically signed by: Xiomara Wills On 06/15/2020 18:12:04 PM
== END ==
LOC: M RAD 16:56
PROVIDERS: ATTEND Internal Medicine Medical Oncology
DX: M53.3 Sacrococcygeal disorders, not elsewhere classified (principal); Z85.118 Personal history of other malignant neoplasm of bronchus and lung; K57.30 Diverticulosis of large intestine without perforation or abscess without bleeding; I71.4 Abdominal aortic aneurysm, without rupture
CPT/HCPCS: 72193; Q9967

== ENCOUNTER → 2020-07-05 | Outpatient (REF) | payer MEDICARE ==
[~2020-07-05] MED LIST changes: -ISOVUE-370 76% 100ML VIAL As Ordered ONE
[2020-07-05 12:23] LABS: TOTAL PROTEIN 7.1 GM/DL (6.4-8.2)
[2020-07-08 14:14] LABS: ALBUMIN 3.75 GM/DL (3.29-5.55); ALBUMIN % 52.8 % (55.8-66.1); ALPHA-1-GLOBULIN % 4.8 % (2.9-4.9); ALPHA-1-GLOBULINS 0.34 GM/DL (0.17-0.41); ALPHA-2-GLOBULINS 0.84 GM/DL (0.42-0.99); ALPHA-2-GLOBULINS % 11.9 % (7.1-11.8); BETA-1-GLOBULINS 0.53 GM/DL (0.28-0.60); BETA-1-GLOBULINS % 7.4 % (4.7-7.2); BETA-2-GLOBULINS 0.43 GM/DL (0.19-0.55); GAMMA GLOBULIN % 17.1 % (11.1-18.8); GAMMA GLOBULINS 1.21 GM/DL (0.65-1.58)
[2020-07-09 00:07] LABS: ALK PHOSPHATASE BONE SPECIFIC 22.5 ug/L (.); CREATININE URINE 91.8 mg/dL (Not Estab.)
== END ==
LOC: M LAB REF 11:20
PROVIDERS: ATTEND Internal Medicine
DX: R79.89 Other specified abnormal findings of blood chemistry (principal); Z79.899 Other long term (current) drug therapy

== ENCOUNTER → 2020-08-10 | Outpatient (CLI) | payer MEDICARE ==
[~2020-08-10] MED LIST changes: +LIDOCAINE 1% MDV 20ML VIAL As Ordered ONE; +LISI-538 PO
[2020-08-10 10:45] VITALS: BP 145/65
--- NOTE | 2020-08-11 21:29 | REP ---
INDICATION: R LUNG CANCER. Diffusely abnormal appearance of the sacrum seen on a previous CT scan dated 06/15/2020. COMPARISON: None. TECHNIQUE: The procedure was performed under the direct supervision of Dr. Jaime. The risks and benefits of the procedure were explained to the patient and informed consent was obtained. The sacrum was localized using CT guidance. The skin was prepped and draped in a sterile fashion. 1% lidocaine was used as a local anesthetic. Using CT guidance a 14 gauge coaxial bone biopsy system was inserted and 5 core biopsy samples are obtained. The patient tolerated the procedure well and there were no immediate complications. After the appropriate amount to monitor convalescence the patient was discharged from the department. FINDINGS: None IMPRESSION: Technically successful CT-guided sacral bone biopsy. <Electronically signed by Miguelangel Russ > 08/10/20 1616 <Electronically signed by Balta Jaime > 08/11/20 [id number]
== END ==
LOC: M IRPRO 08:12
PROVIDERS: ATTEND Internal Medicine Medical Oncology
DX: R93.7 Abnormal findings on diagnostic imaging of other parts of musculoskeletal system (principal); C34.91 Malignant neoplasm of unspecified part of right bronchus or lung

== ENCOUNTER → 2020-09-13 | Outpatient (CLI) | payer MEDICARE ==
[~2020-09-13] MED LIST changes: -CLIN150C14 PO; +CLIN150C15 PO; -LIDOCAINE 1% MDV 20ML VIAL As Ordered ONE; +METF-839 PO
--- NOTE | 2020-09-13 15:59 | REP ---
INDICATION: PERSONAL HX MAL JOSEPH OF BRONCHUS AND LUNG COMPARISON: 05/06/2020 TECHNIQUE: Axial noncontrast images from the thoracic inlet to the upper abdomen with coronal and sagittal reformations. This CT examination was performed using the following dose reduction techniques: Automated exposure control, adjustment of mA and/or kv according to the patient's size, and use of iterative reconstruction technique. FINDINGS: Postsurgical changes involving the right hemithorax with evidence for prior right upper lobe resection as well as postsurgical fibrosis/scarring and elevation to the right hemidiaphragm unchanged from prior examination. Underlying emphysematous disease and granulomatous changes again and essentially unchanged from 05/06/2020. New consolidation, obvious nodule or mass lesion identified. No pleural effusion. No pneumothorax. Mediastinal and hilar adenopathy is identified but incompletely evaluated due to the lack of contrast, but appears similar to prior examination. Further evaluation of the mediastinum demonstrates stable atherosclerotic disease to the thoracic aorta and coronary arteries without aortic aneurysm, cardiomegaly or pericardial effusion. Cardiac stenting noted. IMPRESSION: Stable postsurgical changes along with emphysematous disease and prior granulomatous disease. No acute mediastinal or pleuroparenchymal process appreciated. Atherosclerotic changes to the thoracic aorta and coronary arteries similar to prior examination. <Electronically signed by Alex oYung > 09/13/20 1106
== END ==
LOC: M RAD 10:19
PROVIDERS: ATTEND Internal Medicine Pulmonary Disease
DX: Z85.118 Personal history of other malignant neoplasm of bronchus and lung (principal)

== ENCOUNTER → 2020-09-15 | Outpatient (CLI) | payer MEDICARE ==
[~2020-09-15] MED LIST changes: +ISOS1TAB35 PO; -ISOS30TA4 PO; -LISI-538 PO; +LISI20TA33 PO
--- NOTE | 2020-09-15 08:58 | REP ---
INDICATION: AAA COMPARISON: None. TECHNIQUE: Real time golden scale ultrasound examination using curved array transducer. FINDINGS: Abdominal aorta demonstrates mixed atherosclerotic changes. There is an infrarenal abdominal aortic aneurysm which measures 3.4 x 3.3 cm diameter and 6 cm in craniocaudal length originating approximately 2.3 cm below the renal arteries with subsequent ectasia to the bilateral common iliac arteries. No periaortic fluid collection. Proximal aorta: Limited by overlying gas. Aorta and renal arteries: 2.0 x 1.9 cm Mid aorta: 2.4 x 2.4 cm Distal aorta: 3.4 x 3.3 cm Right common iliac artery: 0.9 x 1.7 cm Left common iliac artery: 1.1 x 1.6 cm IMPRESSION: Infrarenal abdominal aortic aneurysm. Atherosclerotic disease. <Electronically signed by Alex Young > 09/15/20 0854
== END ==
LOC: M RAD 08:17
PROVIDERS: ATTEND Physician Assistant
DX: I71.4 Abdominal aortic aneurysm, without rupture (principal)

== ENCOUNTER → 2020-09-19 | Outpatient (CLI) | payer MEDICARE ==
--- NOTE | 2020-09-19 18:40 | REP ---
INDICATION: CLAUDICATION ATHSCL ANGY LEGS HTN. COMPARISON: None. TECHNIQUE: Bilateral lower extremity arterial Doppler ultrasound. FINDINGS: Ankle brachial indices are normal measured 1.1 on the right and 0.9 on the left. [id number] bilateral lower extremity arterial plaquing is observed. There is some luminal narrowing visible in the mid and distal superficial femoral artery on the right but no high-grade stenosis is seen. Similar changes are noted in the left superficial femoral artery. Again no high-grade stenosis seen. Biphasic and triphasic arterial Doppler waveforms are noted bilaterally. Right lower extremity arterial Doppler velocity chart: Right INFORMATICIST PSV 110 cm/S Profundal 69 Proximal SFA 112 Mid SFA 107-183 Distal SFA 92 Popliteal 61 Proximal JUSTIN 57 Tibial-peroneal trunk 71 Proximal MASTER SCHEDULER 46 Distal MASTER SCHEDULER 49 Distal JUSTIN 53 Left lower extremity arterial Doppler velocity chart: Left INFORMATICIST PSV 96 cm/S Profundal 53 Proximal SFA 84 Mid SFA 98/167 Distal SFA 170 Popliteal 57 Proximal JUSTIN 48 Tibial-peroneal trunk 33 Proximal MASTER SCHEDULER 35 Distal MASTER SCHEDULER 46 Distal JUSTIN 43 IMPRESSION: [id number] atherosclerotic plaquing. No high-grade stenosis or occlusion seen on either side. <Electronically signed by Balta Jamie > 09/19/20 0972
== END ==
LOC: M RAD 10:38
PROVIDERS: ATTEND Physician Assistant
DX: I70.213 Atherosclerosis of native arteries of extremities with intermittent claudication, bilateral legs (principal); I71.4 Abdominal aortic aneurysm, without rupture; I87.301 Chronic venous hypertension (idiopathic) without complications of right lower extremity; Z86.718 Personal history of other venous thrombosis and embolism

== ENCOUNTER → 2020-11-24 | Outpatient (CLI) | payer MEDICARE | LOC: M RAD 09:56 | PROVIDERS: ATTEND Internal Medicine Medical Oncology | DX: C34.90 Malignant neoplasm of unspecified part of unspecified bronchus or lung (principal) ==

== ENCOUNTER → 2020-11-24 | Outpatient (CLI) | payer MEDICARE ==
--- NOTE | 2020-11-24 14:57 | REP ---
INDICATION: LUNG CANCER NM 1ST US 2ND. COMPARISON: Comparison whole body bone scan June 06, 2020.. TECHNIQUE/RADIOTRACER AND DOSE: 22.0 mCi of Technetium-99m MDP was injected and standard whole-body bone scanning is acquired. FINDINGS: There is uptake in bilateral kidneys and the urinary bladder. The previously noted mottled pattern of increased uptake in the sacrum is again noted in tar Susie unchanged scintigraphically. No new focus of increased uptake is seen to suggest new skeletal metastatic disease. Study is otherwise unremarkable. IMPRESSION: Previously noted mottled pattern of abnormal uptake in the sacrum persistent tire Susie unchanged from the June 06, 2020 study. No new abnormality is seen scintigraphically. No evidence of new metastatic disease.. <Electronically signed by Balta Jaime > 11/24/20 3691
--- NOTE | 2020-11-25 06:58 | REP ---
INDICATION: OTHER SYMP/SIGNS INVOL CIRC/RESP SYS NM 1SR US 2ND COMPARISON: None. TECHNIQUE: Severino scale and color Doppler evaluation using linear high frequency transducer Findings: FINDINGS: Two-dimensional severino scale and color images demonstrate normal arterial lumen with laminar flow and no appreciable narrowing. Minimal amounts of atheromatous plaquing noted at the bilateral carotid bulbs. Color Doppler interrogation demonstrates normal arterial wave patterns and velocities with no significant spectral broadening. Normal flow direction is appreciated in the bilateral vertebral arteries. ICA peak systolic velocity: Right 63.6 cm/s; Left 46.6 cm/s ICA diastolic velocity: Right 42.5 cm/s; Left 17.0 cm/s ECA peak systolic velocity: Right 125.5 cm/s; Left 75.0 cm/s CCA peak systolic velocity: Right 61.3 cm/s; Left 73.0 cm/s ICA/CCA ratio: Right 1.04 cm/s; Left 0.64 cm/s IMPRESSION: No hemodynamically significant areas of narrowing or stenosis appreciated. Based on set standards narrowing falls within the less than 50% range. <Electronically signed by Alex Young > 11/25/20 0655
== END ==
LOC: M RAD 09:59
PROVIDERS: ATTEND Physician Assistant
DX: R09.89 Other specified symptoms and signs involving the circulatory and respiratory systems (principal)
CPT/HCPCS: 78306; 93880; A9503

== ENCOUNTER → 2020-11-30 | Outpatient (CLI) | payer MEDICARE ==
--- NOTE | 2020-11-30 11:16 | REPMRS ---
Patient History The patient states she had a clinical breast exam in May 2020. Patient is postmenopausal, has history of other cancer at age 54, and had previous chemotherapy at age 54. Family history of unknown cancer at age 55 in mother, unknown cancer at age 50 in paternal uncle, unknown cancer at age 51 in paternal uncle, breast cancer at age 56 in sister, unknown cancer at age 51 in brother, unknown cancer at age 44 in sister, unknown cancer at age 35 in father. No breast complaints. Patient signed MRS History Sheet. Digital Woman Screen Mammo: November 30, 2020 - Exam #: [id number] Bilateral CC and MLO view(s) were taken. Technologist: Kassie Thomas, Technologist Prior study comparison: October 27, 2019, bilateral digital woman screen mammo performed at [facility] [place]. October 08, 2018, bilateral digital mammo screening bilat, performed at [facility]. FINDINGS: There are scattered fibroglandular densities. Screening. Digital screening (2D) mammography was performed bilaterally in the CC and MLO projections. Additionally, breast tomosynthesis (3D mammography) was performed bilaterally in the CC and MLO projections. Todays exam was compared to the prior exams(s). By history, the patient has no complaints of a palpable breast abnormality or other significant breast complaints. The breasts are unchanged in size and shape. There are no radha-soft tissue densities or spiculated masses. There is no internal architectural distortion. There are no suspicious radha-calcific clusters.Stable benign appearing calcifications are again seen bilaterally. Skin thickening or nipple retraction is not present. IMPRESSION: BI-RADS Category 2- Benign Findings(s). There is no evidence of malignant alteration of the breasts. Followup examination recommended in one year. The Volpara volumetric breast density category is B, there are scattered areas of fibroglandular density. This mammogram was read with the assistance of [place] FDA approved computer aided detection system for mammography. Negative x-ray reports should not delay surgical consultation if a dominant or clinically suspicious mass is present. Not all breast cancers can be identified by mammography. Therefore, we recommend that you continue to perform regular breast self-examination and physical examination and then promptly contact your physician of any concerns or changes. Adenosis and dense breasts may obscure an underlying neoplasm. Assessment: BI-RADS/ACR category 2 mammogram. Benign Findings. Recommendation Routine screening mammogram of both breasts in 1 year. Electronically Signed By: Jayy Mireles DO 11/30/20 6070
== END ==
LOC: M WHC 10:13
PROVIDERS: ATTEND Internal Medicine Medical Oncology
DX: Z12.31 Encounter for screening mammogram for malignant neoplasm of breast (principal)

== ENCOUNTER → 2020-12-13 | Outpatient (CLI) | payer MEDICARE | LOC: M PLALAB 14:35 | PROVIDERS: ATTEND Internal Medicine Endocrinology, Diabetes & Metabolism | DX: M88.89 Osteitis deformans of multiple sites (principal) ==

== ENCOUNTER → 2021-01-27 | Outpatient (CLI) | payer MEDICARE ==
--- NOTE | 2021-01-29 07:54 | REP ---
INDICATION: LOW BACK PAIN, RIGHT SCIATICA COMPARISON: None. TECHNIQUE: AP, lateral, bilateral oblique, and coned-down views of the lumbar spine. FINDINGS: Alignment and lordosis maintained. Vertebral bodies are intact. No acute fracture/compression injury or subluxation. Advanced degenerative changes at L5-S1 includes endplate sclerosis, marginal spurring, facet hypertrophy and disc space narrowing. Moderate multilevel degenerative changes noted throughout the remainder of the lumbar spine. Findings suggest atherosclerotic changes to the aorta with focal aneurysmal dilatation warranting follow-up. IMPRESSION: Moderate/advanced multilevel degenerative spondylosis. Aortic aneurysm suspected and warrants follow-up. <Electronically signed by Alex Young > 01/29/21 2338
== END ==
LOC: M RAD 13:51
PROVIDERS: ATTEND Internal Medicine
DX: M51.26 Other intervertebral disc displacement, lumbar region (principal)

== ENCOUNTER → 2021-06-26 | Outpatient (CLI) | payer MEDICARE ==
[~2021-06-26] MED LIST changes: -CLIN150C15 PO; +CLIN150C17 PO; -CYMB60CA3 PO; +CYMB60CA4 PO; +GLIP10TA18; +LISI30TA4
== END ==
LOC: M WHC 13:24
PROVIDERS: ATTEND Internal Medicine
DX: Z13.820 Encounter for screening for osteoporosis (principal); Z79.52 Long term (current) use of systemic steroids

== ENCOUNTER → 2021-09-06 | Outpatient (CLI) | payer MEDICARE | LOC: M PLAIMG 15:51 | PROVIDERS: ATTEND Internal Medicine | DX: M54.42 Lumbago with sciatica, left side (principal); M51.36 Other intervertebral disc degeneration, lumbar region; M51.37 Other intervertebral disc degeneration, lumbosacral region; I71.4 Abdominal aortic aneurysm, without rupture ==

== ENCOUNTER → 2021-09-25 | Outpatient (CLI) | payer MEDICARE | LOC: M RAD 08:54 | PROVIDERS: ATTEND Internal Medicine | DX: I71.4 Abdominal aortic aneurysm, without rupture (principal) ==

== ENCOUNTER → 2021-09-25 | Outpatient (CLI) | payer MEDICARE | LOC: M RAD 08:55 | PROVIDERS: ATTEND Internal Medicine Pulmonary Disease | DX: Z12.2 Encounter for screening for malignant neoplasm of respiratory organs (principal); F17.210 Nicotine dependence, cigarettes, uncomplicated ==

== ENCOUNTER → 2021-10-26 | Outpatient (CLI) | payer MEDICARE | LOC: M PLALAB 14:51 | PROVIDERS: ATTEND Internal Medicine Endocrinology, Diabetes & Metabolism | DX: M88.89 Osteitis deformans of multiple sites (principal) ==

== ENCOUNTER 2021-11-22 12:13 | Emergency (ER) | payer MEDICARE ==
[~2021-11-22] VITALS: Ht 160 cm; Wt 82.7 kg
[2021-11-22 13:43] LABS: RSV AMPLIFICATION NEGATIVE (NEGATIVE)
[2021-11-22] MEDS ORDERED: PRED20TA PO (16:10)
[2021-11-22] MEDS ORDERED: AMOX875T2 PO (16:10)
[2021-11-22] MEDS ORDERED: MUCI600T31 PO (16:10)
[2021-11-22] MEDS ORDERED: BENZ200C70 PO (16:10)
[2021-11-22 16:15] VITALS: BP 148/70
== END 2021-11-22 16:20 | disposition home or self-care (01) ==
LOC: M ED 12:13
DX: J44.1 Chronic obstructive pulmonary disease with (acute) exacerbation (principal); J06.9 Acute upper respiratory infection, unspecified; F17.200 Nicotine dependence, unspecified, uncomplicated; Z88.1 Allergy status to other antibiotic agents; Z88.6 Allergy status to analgesic agent; Z79.899 Other long term (current) drug therapy; Z79.84 Long term (current) use of oral hypoglycemic drugs

== ENCOUNTER → 2021-12-28 | Outpatient (CLI) | payer MEDICARE ==
[~2021-12-28] MED LIST changes: +AMOX875T2 PO; +BENZ200C70 PO; +MUCI600T31 PO; +PRED20TA PO
== END ==
LOC: M WHC 12:39
PROVIDERS: ATTEND Internal Medicine
DX: Z12.31 Encounter for screening mammogram for malignant neoplasm of breast (principal)

== ENCOUNTER → 2022-01-28 | Outpatient (CLI) | payer MEDICARE ==
[~2022-01-28] MED LIST changes: +BREO1INH3 INH; -BREO1INH3 PO; -GLIP10TA18; +GLIP10TA18 PO; +HYDR-3713 PO; -LISI30TA4; +LISI30TA4 PO; +PROAAER10 INH
== END ==
LOC: M LABSMTC 12:01
PROVIDERS: ATTEND Anesthesiology
DX: Z01.818 Encounter for other preprocedural examination (principal); Z11.52 Encounter for screening for COVID-19

== ENCOUNTER 2022-01-31 09:38 | Day surgery (SDC) | payer MEDICARE ==
[~2022-01-31] VITALS: Ht 162.6 cm; Wt 80.5 kg
[~2022-01-31 09:38] MED LIST changes: +LIDOCAINE 2% 100MG/5ML SDV (FOR ANES.) As Ordered ONE; +NS 1,000 ML IV ONE; +fentaNYL 100 MCG/2 ML INJECTION As Ordered ONE; +propofoL 500 MG/50 ML VIAL As Ordered ONE
[2022-01-31 11:45] VITALS: BP 131/60
== END 2022-01-31 12:03 | disposition home or self-care (01) ==
LOC: M OPP 09:38
PROVIDERS: ATTEND Internal Medicine Gastroenterology
DX: Z12.11 Encounter for screening for malignant neoplasm of colon (principal); K57.30 Diverticulosis of large intestine without perforation or abscess without bleeding; K64.0 First degree hemorrhoids; K31.89 Other diseases of stomach and duodenum; K22.89 Other specified disease of esophagus; K44.9 Diaphragmatic hernia without obstruction or gangrene; R12 Heartburn; Z79.51 Long term (current) use of inhaled steroids; Z79.84 Long term (current) use of oral hypoglycemic drugs; Z79.899 Other long term (current) drug therapy; Z88.1 Allergy status to other antibiotic agents; Z88.5 Allergy status to narcotic agent; Z86.74 Personal history of sudden cardiac arrest; Z86.718 Personal history of other venous thrombosis and embolism; Z95.5 Presence of coronary angioplasty implant and graft; F17.210 Nicotine dependence, cigarettes, uncomplicated
CPT/HCPCS: 43239; 88305; G0121; J3010

== ENCOUNTER → 2022-02-27 | Outpatient (CLI) | payer MEDICARE ==
[~2022-02-27] MED LIST changes: -LIDOCAINE 2% 100MG/5ML SDV (FOR ANES.) As Ordered ONE; -NS 1,000 ML IV ONE; -fentaNYL 100 MCG/2 ML INJECTION As Ordered ONE; -propofoL 500 MG/50 ML VIAL As Ordered ONE
== END ==
LOC: M RAD 13:54
PROVIDERS: ATTEND Surgery
DX: S01.85XA Open bite of other part of head, initial encounter (principal)

== ENCOUNTER → 2022-04-19 | Outpatient (CLI) | payer MEDICARE ==
[2022-04-19 15:22] LABS: HEMATOCRIT 41.1 % (36.0-47.0); MEAN CORPUSCULAR HGB CONC 31.6 g/dl (32.0-36.5); MEAN CORPUSCULAR VOLUME 82.2 fl (80.0-96.0); PLATELET COUNT, AUTOMATED 350 10^3/uL (150-450); WHITE BLOOD COUNT 8.1 10^3/uL (4.0-10.0)
[2022-04-19 15:51] LABS: BLOOD UREA NITROGEN 10 MG/DL (7-18); CALCIUM LEVEL 9.4 MG/DL (8.5-10.1); CARBON DIOXIDE LEVEL 27 MEQ/L (21-32); CHLORIDE LEVEL 101 MEQ/L (98-107); CREATININE FOR GFR 0.64 MG/DL (0.55-1.30); GLOMERULAR FILTRATION RATE > 60.0 (>51); GLUCOSE, FASTING 148 MG/DL (70-100); MAGNESIUM LEVEL 1.8 MG/DL (1.8-2.4); POTASSIUM SERUM 4.8 MEQ/L (3.5-5.1); SODIUM LEVEL 132 MEQ/L (136-145)
== END ==
LOC: M LAB 14:09
PROVIDERS: ATTEND Physician Assistant
DX: R00.2 Palpitations (principal)

== ENCOUNTER → 2022-07-25 | Outpatient (REF) | payer MEDICARE ==
[~2022-07-25] MED LIST changes: +CLOP75TA99 PO; -PLAV1TAB2 PO; -POTA10CA32 PO; +POTA10CA33 PO
== END ==
LOC: M SFHCWAGY 17:32
PROVIDERS: ATTEND Advanced Practice Midwife
DX: Z12.4 Encounter for screening for malignant neoplasm of cervix (principal)
CPT/HCPCS: 87624; G0123

== ENCOUNTER → 2022-10-11 | Outpatient (CLI) | payer MEDICARE | LOC: M RAD 16:17 | PROVIDERS: ATTEND Internal Medicine | DX: M54.2 Cervicalgia (principal) ==

== ENCOUNTER → 2022-11-16 | Outpatient (CLI) | payer MEDICARE | LOC: M RAD 13:44 | PROVIDERS: ATTEND Physician Assistant | DX: Z87.891 Personal history of nicotine dependence (principal) ==

== ENCOUNTER → 2022-12-28 | Outpatient (CLI) | payer MEDICARE ==
[~2022-12-28] MED LIST changes: +ALBU8.5H INH
== END ==
LOC: M WHC 12:41
PROVIDERS: ATTEND Internal Medicine Medical Oncology
DX: Z12.31 Encounter for screening mammogram for malignant neoplasm of breast (principal)

== ENCOUNTER → 2023-01-22 | Outpatient (CLI) | payer MEDICARE | LOC: M RAD 08:41 | PROVIDERS: ATTEND Surgery Vascular Surgery | DX: I71.40 Abdominal aortic aneurysm, without rupture, unspecified (principal) ==

== ENCOUNTER → 2023-02-08 | Outpatient (CLI) | payer MEDICARE ==
[~2023-02-08] MED LIST changes: -POTA10CA33 PO; +POTA10CA60 PO
== END ==
LOC: M WUC 13:49
PROVIDERS: ATTEND Internal Medicine
DX: M25.50 Pain in unspecified joint (principal)

== ENCOUNTER → 2023-03-18 | Outpatient (CLI) | payer MEDICARE | LOC: M PLALAB 16:03 | PROVIDERS: ATTEND Internal Medicine Endocrinology, Diabetes & Metabolism | DX: M88.89 Osteitis deformans of multiple sites (principal) ==

== ENCOUNTER → 2023-06-24 | Outpatient (CLI) | payer MEDICARE | LOC: M WUC 12:04 | PROVIDERS: ATTEND Nurse Practitioner Family | DX: R06.02 Shortness of breath (principal); R05.3 Chronic cough ==

== ENCOUNTER 2023-07-05 17:59 | Emergency (ER) | payer MEDICARE ==
[~2023-07-05] VITALS: Ht 162.6 cm; Wt 77.9 kg
[2023-07-05 19:05] LABS: BASO % 0.3 % (0.0-1.0); EOS # 0.1 10^3/uL (0.0-0.5); EOS % 0.6 % (0.0-3.0); HEMATOCRIT 38.8 % (36.0-47.0); HEMOGLOBIN 12.4 g/dl (12.0-15.5); LYMPH % 19.8 % (24.0-44.0); MEAN CORPUSCULAR HEMOGLOBIN 24.8 pg (27.0-33.0); MEAN CORPUSCULAR VOLUME 77.4 fl (80.0-96.0); MONO % 6.4 % (2.0-8.0); NEUTROPHILS % 72.5 % (36.0-66.0); PLATELET COUNT, AUTOMATED 471 10^3/uL (150-450); RED BLOOD COUNT 5.01 10^6/uL (4.00-5.40); WHITE BLOOD COUNT 15.2 10^3/uL (4.0-10.0)
[2023-07-05 19:22] LABS: INR 2.58; PROTHROMBIN TIME 26.8 SECONDS (12.5-14.5)
[2023-07-05 19:24] LABS: ALBUMIN 3.5 G/DL (3.2-5.2); ALKALINE PHOSPHATASE 86 U/L (46-116); ALT/SGPT 10 U/L (7.0-40); AST/SGOT 13 U/L (<34); BILIRUBIN,TOTAL 0.5 MG/DL (0.3-1.2); BLOOD UREA NITROGEN 7 MG/DL (9-23); CALCIUM LEVEL 9.2 MG/DL (8.3-10.6); CARBON DIOXIDE LEVEL 24 MMOL/L (20-31); CHLORIDE LEVEL 97 MMOL/L (98-107); CREATININE FOR GFR 0.48 MG/DL (0.55-1.30); GLOMERULAR FILTRATION RATE > 60.0 (>45); GLUCOSE, FASTING 178 MG/DL (74-106); POTASSIUM SERUM 3.7 MMOL/L (3.5-5.1); SODIUM LEVEL 131 MMOL/L (136-145); TOTAL PROTEIN 7.2 G/DL (5.7-8.2)
[2023-07-05] MEDS ORDERED: ISOVUE-370 76% 100ML VIAL As Ordered ONE (19:30)
[2023-07-05 22:20] VITALS: BP 146/74; TEMP 98.5; O2SAT 99
== END 2023-07-05 22:21 | disposition home or self-care (01) ==
LOC: M ED 17:59
DX: S30.1XXA Contusion of abdominal wall, initial encounter (principal); K57.30 Diverticulosis of large intestine without perforation or abscess without bleeding; I48.91 Unspecified atrial fibrillation; I25.10 Atherosclerotic heart disease of native coronary artery without angina pectoris; E11.9 Type 2 diabetes mellitus without complications; I10 Essential (primary) hypertension; E78.5 Hyperlipidemia, unspecified; J44.9 Chronic obstructive pulmonary disease, unspecified; F17.200 Nicotine dependence, unspecified, uncomplicated; Z85.118 Personal history of other malignant neoplasm of bronchus and lung; Z86.711 Personal history of pulmonary embolism; Z92.21 Personal history of antineoplastic chemotherapy; Z80.1 Family history of malignant neoplasm of trachea, bronchus and lung; Z99.81 Dependence on supplemental oxygen; Z79.02 Long term (current) use of antithrombotics/antiplatelets; Z79.01 Long term (current) use of anticoagulants; Z79.84 Long term (current) use of oral hypoglycemic drugs; Z79.899 Other long term (current) drug therapy; Z88.1 Allergy status to other antibiotic agents; Z88.5 Allergy status to narcotic agent
CPT/HCPCS: 74177; 80053; 85025; 85610; 86850; 86900; 86901; 99284; Q9967

== ENCOUNTER → 2023-07-24 | Outpatient (CLI) | payer MEDICARE | LOC: M RAD 12:19 | PROVIDERS: ATTEND Physician Assistant | DX: I65.23 Occlusion and stenosis of bilateral carotid arteries (principal) ==

== ENCOUNTER → 2023-09-19 | Outpatient (CLI) | payer MEDICARE, OTHER | LOC: M PLAIMG 13:11 | PROVIDERS: ATTEND Physician Assistant | DX: R06.02 Shortness of breath (principal); I25.10 Atherosclerotic heart disease of native coronary artery without angina pectoris; I48.0 Paroxysmal atrial fibrillation; I51.7 Cardiomegaly; I27.20 Pulmonary hypertension, unspecified ==

== ENCOUNTER → 2024-01-01 | Outpatient (CLI) | payer OTHER ==
[~2024-01-01] MED LIST changes: -POTA10CA60 PO; +POTA10CA70 PO
== END ==
LOC: M WHC 13:07
PROVIDERS: ATTEND Advanced Practice Midwife
DX: Z12.31 Encounter for screening mammogram for malignant neoplasm of breast (principal)

== ENCOUNTER → 2024-01-03 | Outpatient (CLI) | payer OTHER | LOC: M RAD 14:47 | PROVIDERS: ATTEND Internal Medicine Pulmonary Disease | DX: Z12.2 Encounter for screening for malignant neoplasm of respiratory organs (principal); F17.210 Nicotine dependence, cigarettes, uncomplicated; J44.9 Chronic obstructive pulmonary disease, unspecified; Z85.118 Personal history of other malignant neoplasm of bronchus and lung; I25.10 Atherosclerotic heart disease of native coronary artery without angina pectoris; I51.7 Cardiomegaly ==

== ENCOUNTER → 2024-05-11 | Outpatient (REF) | payer OTHER ==
[~2024-05-11] MED LIST changes: +SPIR-10
== END ==
LOC: M LAB REF 16:52
PROVIDERS: ATTEND Internal Medicine
DX: M88.89 Osteitis deformans of multiple sites (principal)

== ENCOUNTER → 2024-06-12 | Outpatient (CLI) | payer OTHER ==
[~2024-06-12] MED LIST changes: +GLIP10TA15 PO; -GLIP10TA6 PO
== END ==
LOC: M WUC 11:19
PROVIDERS: ATTEND Internal Medicine
DX: R06.02 Shortness of breath (principal)

== ENCOUNTER → 2024-08-25 | Outpatient (CLI) | payer MEDICARE, OTHER | LOC: M RAD 06:50 | PROVIDERS: ATTEND Surgery Vascular Surgery | DX: I71.40 Abdominal aortic aneurysm, without rupture, unspecified (principal); I65.23 Occlusion and stenosis of bilateral carotid arteries ==

== ENCOUNTER → 2024-10-06 | Outpatient (CLI) | payer MEDICARE | LOC: M RAD 13:03 | PROVIDERS: ATTEND Physician Assistant | DX: I71.23 Aneurysm of the descending thoracic aorta, without rupture (principal) ==

== ENCOUNTER → 2024-11-25 | Outpatient (REF) | payer MEDICARE ==
[~2024-11-25] MED LIST changes: +GLIP-320 PO; -GLIP10TA18 PO
[2024-11-26 14:52] LABS: PERCENT SATURATION 4.3 % (13.2-45.0)
[2024-11-26 14:54] LABS: FERRITIN 20.1 NG/ML (7.3-270.7); FOLATE 5.8 NG/ML (>5.4)
== END ==
LOC: M LAB REF 13:47
PROVIDERS: ATTEND Internal Medicine
DX: D64.9 Anemia, unspecified (principal)

== ENCOUNTER → 2025-05-31 | Outpatient (REF) | payer MEDICARE ==
[2025-06-03 16:42] LABS: N-TELOPEPTIDE LEVEL 104 (see note); NTXURINE2 106 mg/dL (20-275)
[2025-06-05 01:52] LABS: 25-HYDROXY VITAMIN D2 < 8 pg/mL; 25-HYDROXY VITAMIN D3 35 pg/mL; VITAMIN D 1 25 DIHYDROXY 35 pg/mL (18-72)
== END ==
LOC: M LAB REF 13:39
PROVIDERS: ATTEND Internal Medicine
DX: M88.89 Osteitis deformans of multiple sites (principal)